=== PATIENT | female | born 1985 | race Caucasian/White ===

== ENCOUNTER → 2019-02-19 | Outpatient (CLI) | payer OTHER ==
--- NOTE | 2019-02-19 21:48 | Diagnostic Imaging Report ---
INDICATION: Tenderness in the upper outer left breast. COMPARISON: Correlation made with prior mammogram of 07/18/2016. EXAMINATION: 2D and 3D bilateral diagnostic mammography was performed with CAD. A BB marker was placed at the area of tenderness in the upper outer left breast posterior depth. The current study was also evaluated with a Computer Aided Detection (CAD) system. FINDINGS: Scattered fibroglandular densities are identified, bilaterally. Benign-appearing nodule in the central left breast is stable. No new mass or malignant-appearing microcalcifications are seen. Intraparenchymal lymph node in the axillary tail on the left is stable. IMPRESSION: No mammographic features suspicious for malignancy are identified. Even so, directed sonographic interrogation of the area of tenderness in the upper-outer left breast is recommended and will be performed today. ACR BI-RADS Category 0: Incomplete. (Needs additional imaging evaluation). Result letter will be mailed to the patient. Note: At least 10% of breast cancer is not imaged by mammography. Dictated by: Dictated on workstation # [id number]
--- NOTE | 2019-02-20 14:57 | Diagnostic Imaging Report ---
INDICATION: Tenderness in the upper-outer left breast. CORRELATION with diagnostic mammogram earlier the same day. FINDINGS: Sonographic interrogation of the area of tenderness in the outer left breast was performed. This corresponds to the 1 to 5 o'clock location of the left breast. No sonographic abnormality is seen. No solid or cystic mass is detected. IMPRESSION: BI-RADS category 1. No sonographic abnormality is detected. ACR BI-RADS Category 1: Negative. Result letter will be mailed to the patient. Note: At least 10% of breast cancer is not imaged by mammography. Dictated by: Dictated on workstation # [id number]
== END ==
LOC: RAD 14:13
PROVIDERS: ATTEND Obstetrics & Gynecology
DX: N63.10 Unspecified lump in the right breast, unspecified quadrant (principal); N63.20 Unspecified lump in the left breast, unspecified quadrant
CPT/HCPCS: 76642; 77066

== ENCOUNTER → 2020-06-14 | Outpatient (CLI) | payer OTHER ==
--- NOTE | 2020-06-14 13:58 | Diagnostic Imaging Report ---
INDICATION: Low back pain. EXAMINATION: Lumbar spine. FINDINGS: AP and lateral views of the lumbar spine show normal vertebral body height and alignment. The disc spaces are normal. The posterior elements are unremarkable. There is an IUD in the uterus. IMPRESSION: Unremarkable lumbar spine. Dictated by: Dictated on workstation # [id number]
== END ==
LOC: RAD 13:24
PROVIDERS: ATTEND Nurse Practitioner Family
DX: M54.5 Low back pain (principal); M25.559 Pain in unspecified hip
CPT/HCPCS: 72100

== ENCOUNTER → 2020-07-19 | Outpatient (CLI) | payer OTHER ==
--- NOTE | 2020-07-19 10:16 | Diagnostic Imaging Report ---
PROCEDURE: MRI lumbar spine without contrast. TECHNIQUE: Multiplanar, multisequence MRI of the lumbar spine was performed without contrast. INDICATION: Chronic low back pain. COMPARISON: 06/14/2020. FINDINGS: 5 lumbar type vertebral bodies are visualized with the last well-formed disc space designated L5-S1. No acute fracture or dislocation is seen in the lumbar spine. Alignment is anatomic. Vertebral body heights and disc spaces are well-maintained. The bone marrow signal is normal. The conus terminates at the L1 level. No masses are seen associated with the conus or nerve roots of the cauda equina. No epidural collections are identified. Degenerative changes are as follows: T12-L1: No significant spinal canal or foraminal stenosis. L1-L2: No significant spinal canal or foraminal stenosis. L2-L3: No significant spinal canal or foraminal stenosis. L3-L4: No significant spinal canal or foraminal stenosis. L4-L5: No significant spinal canal or foraminal stenosis. L5-S1: Left paracentral disc protrusion with small annular fissure, facet hypertrophy, and buckling of ligamentum flavum results in no significant spinal canal narrowing and [id number]-mg-sommpbua bilateral foraminal narrowing. Paravertebral soft tissues are unremarkable. IMPRESSION: 1. No acute fracture or dislocation in the lumbar spine. 2. Degenerative changes at the L5-S1 level resulting in [id number] bilateral foraminal narrowing. A small left paracentral disc protrusion with annular fissure is also present at L5-S1. Dictated by: Dictated on workstation # [id number]
== END ==
LOC: RAD 08:00
PROVIDERS: ATTEND Nurse Practitioner Family
DX: M47.817 Spondylosis without myelopathy or radiculopathy, lumbosacral region (principal); M51.27 Other intervertebral disc displacement, lumbosacral region; M48.07 Spinal stenosis, lumbosacral region
CPT/HCPCS: 72148

== ENCOUNTER 2023-01-18 06:08 | Emergency (ER) | payer OTHER ==
[~2023-01-18] VITALS: Ht 157.5 cm; Wt 68.0 kg
[2023-01-18] MEDS ORDERED: DEXT30CA4 (06:18)
--- NOTE | 2023-01-18 06:26 | ED Abdominal Pain ---
General Chief Complaint: Abdominal/GI Problems Stated Complaint: ABD PAIN/VOMITING Nursing Triage Note: LEFT SIDED ABDOMINAL PAIN SINCE 11A 01/17/23, VOMITTING SINCE 1800 Source of Information: Patient Exam Limitations: No Limitations History of Present Illness Date Seen by Provider: January 18, 2023 Time Seen by Provider: 06:12 Initial Comments 37-year-old female presents to the emergency department today for left-sided abdominal pain. Pain started a sharp stabbing pain in her left mid to lower abdomen yesterday at about 11 AM. She started vomiting at about 6 PM. She has had continued pain and vomiting since that time. Pain is in her left mid abdomen with doubt radiation. No obvious aggravating or alleviating factors. Emesis is nonbloody and nonbilious. She states she had a solid bowel movement yesterday. She denies any fevers but has had chills. No known sick contacts. Has not had a menstrual cycle in 2 months, has an IUD but states she has not had sex and does not believe that she is . No vaginal symptoms. No changes in urination. She has had her left fallopian tube removed. All other systems reviewed and negative except documented per HPI. Voice recognition software was used to help create this chart Allergies and Home Medications Allergies Coded Allergies: No Known Drug Allergies (Unverified , 01/18/23) Patient Home Medication List Home Medication List Reviewed: Yes Dextroamphetamine/Amphetamine (Dextroamp-Amphet ER 30 mg Cap) 30 Mg Cap.er.24h, (Reported) Entered as Reported by: ROX NEIL on 01/18/23 0618 Last Action: New Order Review of Systems Review of Systems Constitutional: see HPI Past Qmzixbw-Gpfmfn-Ccfivo Hx Patient Social History Tobacco Use?: No Substance use?: No Alcohol Use?: Yes Alcohol Frequency: Rarely Pt feels they are or have been: No Immunizations Up To Date First/Initial COVID19 Vaccinat: X2 Past Medical History Surgery/Hospitalization HX: L OOPHERECTOMY Last Menstrual Period: Nov 19, 2022 Physical Exam Vital Signs Vital Signs - First Documented 01/18/23 06:13 Temp 36.0 Pulse 82 Resp 16 B/P (MAP) 126/97 (107) Pulse Ox 98 O2 Delivery Room Air Capillary Refill : Less Than 3 Seconds Height/Weight/BMI Height: '" Weight: lbs. oz. kg; 27.00 BMI Method: General Appearance: WD/WN, no apparent distress HEENT: normal ENT inspection, pharynx normal Neck: non-tender, full range of motion, supple, normal inspection Respiratory: chest non-tender, lungs clear, normal breath sounds, no respiratory distress, no accessory muscle use Cardiovascular: regular rate, rhythm, no murmur Gastrointestinal: normal bowel sounds, soft, no organomegaly, tenderness (Tenderness palpation left mid abdomen with voluntary guarding. No rebound tenderness. No mass organomegaly. No skin changes) Extremities: normal range of motion, non-tender, normal inspection, no calf tenderness, normal capillary refill Neurologic/Psychiatric: alert, normal mood/affect, oriented x 3 Skin: normal color, warm/dry Progress/Results/Core Measures Results/Orders Lab Results Laboratory Tests Test 01/18/23 06:28 01/18/23 06:35 Range/Units Urine Color YELLOW Urine Clarity CLOUDY Urine pH 6.0 5-9 Urine Specific [place] 1.025 H 1.016-1.022 Urine Protein TRACE H NEGATIVE Urine Glucose (UA) NEGATIVE NEGATIVE Urine Ketones 2+ H NEGATIVE Urine Nitrite NEGATIVE NEGATIVE Urine Bilirubin NEGATIVE NEGATIVE Urine Urobilinogen 0.2 < = 1.0 MG/DL Urine Leukocyte Esterase NEGATIVE NEGATIVE Urine RBC (Auto) NEGATIVE NEGATIVE Urine RBC NONE /HPF Urine WBC RARE /HPF Urine Squamous Epithelial Cells 2-5 /HPF Urine Crystals NONE /LPF Urine Bacteria TRACE /HPF Urine Casts PRESENT /LPF Urine Hyaline Casts RARE /LPF Urine Mucus SMALL H /LPF Urine Culture Indicated NO White Blood Count 10.5 4.3-11.0 10^3/uL Red Blood Count 5.07 3.80-5.11 10^6/uL Hemoglobin 15.2 11.5-16.0 g/dL Hematocrit 44 35-52 % Mean Corpuscular Volume 86 80-99 fL Mean Corpuscular Hemoglobin 30 25-34 pg Mean Corpuscular Hemoglobin Concent 35 32-36 g/dL Red Cell Distribution Width 12.0 10.0-14.5 % Platelet Count 366 130-400 10^3/uL Mean Platelet Volume 9.9 9.0-12.2 fL Immature Granulocyte % (Auto) 0 % Neutrophils (%) (Auto) 79 H 42-75 % Lymphocytes (%) (Auto) 16 12-44 % Monocytes (%) (Auto) 4 0-12 % Eosinophils (%) (Auto) 1 0-10 % Basophils (%) (Auto) 1 0-10 % Neutrophils # (Auto) 8.3 H 1.8-7.8 10^3/uL Lymphocytes # (Auto) 1.7 1.0-4.0 10^3/uL Monocytes # (Auto) 0.4 0.0-1.0 10^3/uL Eosinophils # (Auto) 0.1 0.0-0.3 10^3/uL Basophils # (Auto) 0.1 0.0-0.1 10^3/uL Immature Granulocyte # (Auto) 0.0 0.0-0.1 10^3/uL Sodium Level 139 135-145 MMOL/L Potassium Level 3.5 L 3.6-5.0 MMOL/L Chloride Level 103 98-107 MMOL/L Carbon Dioxide Level 24 21-32 MMOL/L Anion Gap 12 5-14 MMOL/L Blood Urea Nitrogen 9 7-18 MG/DL Creatinine 0.80 0.60-1.30 MG/DL Estimat Glomerular Filtration Rate 96 BUN/Creatinine Ratio 11 Glucose Level 103 70-105 MG/DL Calcium Level 9.3 8.5-10.1 MG/DL Corrected Calcium 8.5-10.1 MG/DL Total Bilirubin 1.5 H 0.1-1.0 MG/DL Aspartate Amino Transf (AST/SGOT) 19 5-34 U/L Alanine Aminotransferase (ALT/SGPT) 16 0-55 U/L Alkaline Phosphatase 82 40-136 U/L Total Protein 7.6 6.4-8.2 GM/DL Albumin 4.6 H 3.2-4.5 GM/DL Lipase 16 8-78 U/L My Orders Orders - ADRIANNE RENEE DO Comprehensive Metabolic Panel (01/18/23 06:21) Lipase (01/18/23 06:21) Ua Culture If Indicated (01/18/23 06:21) Urine Bedside (01/18/23 06:21) Cbc With Automated Diff (01/18/23 06:21) Ct Abdomen/Pelvis W (01/18/23 06:21) Ondansetron Injection (Zofran Injectio (01/18/23 06:30) Ns Iv 1000 Ml (Sodium Chloride 0.9%) (01/18/23 06:30) Iohexol Injection (Omnipaque 350 Mg/Ml 1 (01/18/23 07:00) Received Contrast (Hold Metformin- Contr (01/18/23 07:00) Ns (Ivpb) (Sodium Chloride 0.9% Ivpb Bag (01/18/23 07:00) Medications Given in ED Current Medications Medications Dose Ordered Sig/Julissa Route Start Time Stop Time Status Last Admin Dose Admin Iohexol 100 ml ONCE ONCE IV 01/18/23 07:00 01/18/23 07:05 DC 01/18/23 07:01 78 ML Ondansetron HCl 8 mg ONCE ONCE IVP 01/18/23 06:30 01/18/23 06:31 DC 01/18/23 06:31 8 MG Sodium Chloride 100 ml ONCE ONCE IV 01/18/23 07:00 01/18/23 07:05 DC 01/18/23 07:01 80 ML Vital Signs/I&O 01/18/23 06:13 Temp 36.0 Pulse 82 Resp 16 B/P (MAP) 126/97 (107) Pulse Ox 98 O2 Delivery Room Air Blood Pressure Mean: 107 Departure Communication (Admissions) Differential diagnosis includes gastritis, ulcer, pancreatitis, colitis, diverticulitis, viral syndrome. Will get labs, CT. Give IV fluids and IV Zofran Labs reviewed independently, unremarkable complete metabolic panel,. CT scan images reviewed independently no obvious acute abnormality. Radiology read shows some possible slight thickening in the distal stomach but no surgical findings. Patient is tolerating p.o. after IV Zofran. She was also given IV fluids. We will discharge her home with supportive care, Zofran and close follow-up. Impression Primary Impression: Abdominal pain Qualified Codes: R10.32 - Left lower quadrant pain Additional Impression: Nausea and vomiting Qualified Codes: R11.2 - Nausea with vomiting, unspecified Disposition: HOME, SELF-CARE Condition: Stable Departure-Patient Inst. Referrals: JIMY FELDMAN MD (PCP/Family) Primary Care Physician Patient Instructions: Abdominal Pain, Adult ED, Nausea and Vomiting, Adult Add. Discharge Instructions: Increase your fluids at home and rest as needed. Use the Zofran as needed by dissolving it under your tongue to help with nausea. Return to the emergency department for any severe concerns. You may want to try an acid medicine such as Pepcid see if this may help with your pain. Your symptoms are likely the last 24 to 48 hours and gradually improve thereafter. Follow-up with primary doctor for any nonemergent needs. All discharge instructions reviewed with patient and/or family. Voiced understanding. Scripts Ondansetron (Ondansetron Odt) 8 Mg Tab.rapdis 8 MG SL Q6H PRN for NAUSEA/VOMITING for 3 Days, #12 TAB Prov: ADRIANNE RENEE DO 01/18/23 ADRIANNE RENEE DO January 18, 2023 06:26
[2023-01-18] MEDS ORDERED: ONDANSETRON 4 MG/2 ML (SDV) Z0FRAN IVP ONE (06:30)
[2023-01-18] MEDS ORDERED: NS IV 1000 ML 1,000 ML IV SCH (06:30)
[2023-01-18 06:31] LABS: BILIRUBIN,URINE NEGATIVE (NEGATIVE); CLARITY,URINE CLOUDY; COLOR,URINE YELLOW; GLUCOSE, URINE (UA) NEGATIVE (NEGATIVE); KETONES,URINE 2+ (NEGATIVE); LEUKOCYTE ESTERASE ,URINE NEGATIVE (NEGATIVE); NITRITE,URINE NEGATIVE (NEGATIVE); PROTEIN,URINE TRACE (NEGATIVE)
[2023-01-18 06:46] LABS: ALBUMIN 4.6 GM/DL (3.2-4.5); CHLORIDE 103 MMOL/L (98-107)
[2023-01-18 06:47] LABS: POTASSIUM 3.5 MMOL/L (3.6-5.0); SODIUM 139 MMOL/L (135-145)
[2023-01-18 06:48] LABS: CALCIUM 9.3 MG/DL (8.5-10.1)
[2023-01-18 06:49] LABS: GLUCOSE 103 MG/DL (70-105); TOTAL PROTEIN 7.6 GM/DL (6.4-8.2)
[2023-01-18 06:50] LABS: CARBON DIOXIDE 24 MMOL/L (21-32)
[2023-01-18 06:51] LABS: BILIRUBIN,TOTAL 1.5 MG/DL (0.1-1.0)
[2023-01-18 06:52] LABS: ALKALINE PHOSPHATASE 82 U/L (40-136)
[2023-01-18 06:53] LABS: GFR ESTIMATED 96
[2023-01-18 06:54] LABS: BASOPHILS # (AUTO) 0.1 10^3/uL (0.0-0.1); BASOPHILS % (AUTO) 1 % (0-10); BUN/CREATININE RATIO 11; EOSINOPHILS # (AUTO) 0.1 10^3/uL (0.0-0.3); EOSINOPHILS % (AUTO) 1 % (0-10); HEMATOCRIT 44 % (35-52); HEMOGLOBIN 15.2 g/dL (11.5-16.0); LYMPHOCYTES # (AUTO) 1.7 10^3/uL (1.0-4.0); LYMPHOCYTES % (AUTO) 16 % (12-44); MEAN CORPUSCULAR HEMOGLOBIN 30 pg (25-34); MEAN CORPUSCULAR HGB CONC 35 g/dL (32-36); MEAN CORPUSCULAR VOLUME 86 fL (80-99); MEAN PLATELET VOLUME 9.9 fL (9.0-12.2); MONOCYTES # (AUTO) 0.4 10^3/uL (0.0-1.0); MONOCYTES % (AUTO) 4 % (0-12); NEUTROPHILS # (AUTO) 8.3 10^3/uL (1.8-7.8); NEUTROPHILS % (AUTO) 79 % (42-75); PLATELET COUNT 366 10^3/uL (130-400); WHITE BLOOD COUNT 10.5 10^3/uL (4.3-11.0)
[2023-01-18 06:55] LABS: ALANINE AMINOTRANSFERASE 16 U/L (0-55)
[2023-01-18 06:56] LABS: LIPASE 16 U/L (8-78)
[2023-01-18 06:57] LABS: BACTERIA,URINE TRACE /HPF; HYALINE CASTS, URINE RARE /LPF; WBC,URINE RARE /HPF
[2023-01-18] MEDS ORDERED: HOLD METFORMIN - RECEIVED CONTRAST 20 ML VIAL IV SCH (07:00)
[2023-01-18] MEDS ORDERED: NS 100 ML (IVPB) BAG IV ONE (07:00)
[2023-01-18] MEDS ORDERED: IOHEXOL 350 MG/ML 100 ML (OMNIPAQUE 350) VIAL IV ONE (07:00)
--- NOTE | 2023-01-18 07:14 | Diagnostic Imaging Report ---
PROCEDURE: CT abdomen and pelvis with contrast. TECHNIQUE: Multiple contiguous axial images were obtained through the abdomen and pelvis after administration of intravenous contrast. Auto Exposure Controls were utilized during the CT exam to meet ALARA standards for radiation dose reduction. All CT scans use one or more of the following dose optimizing techniques: automated exposure control, MA and/or KvP adjustment based on patient size and exam type or iterative reconstruction. INDICATION: Left abdominal pain with nausea and emesis There is no focal hepatic, gallbladder, pancreatic, adrenal gland or splenic abnormality. Kidneys are also unremarkable apart from probable minimal cyst in the right renal cortex. There is mural thickening along the gastric antrum and pylorus which could be due to inflammation. There is no evidence of free fluid. No pneumoperitoneum is identified. There is no evidence of appendiceal region inflammation. Probable dominant follicle or cyst seen in the right ovary with intrauterine device in expected location. Unopacified urinary bladder is decompressed but otherwise unremarkable in appearance. IMPRESSION: Thickening of the distal stomach could be related to localized gastritis or peptic ulcer disease. No perforation or other complication is seen. Otherwise, no definite acute abnormality is appreciated. Dictated by: Dictated on workstation # [id number]
[2023-01-18] MEDS ORDERED: ONDA8TAB13 SL (07:22)
[2023-01-18 07:31] VITALS: BP 126/97
== END 2023-01-18 07:32 | disposition home or self-care (01) ==
LOC: EDUNIT# 06:08 → ER 06:10
DX: R10.32 Left lower quadrant pain (principal); R11.2 Nausea with vomiting, unspecified
CPT/HCPCS: 36415; 74177; 80053; 81000; 83690; 84703; 85025

== ENCOUNTER 2023-01-21 09:40 | Observation (INO) | payer OTHER ==
[~2023-01-21] VITALS: Ht 157 cm; Wt 68.5 kg
[~2023-01-21 09:40] MED LIST: DEXT30CA4; ONDA8TAB13 SL
[2023-01-21 10:08] LABS: CLARITY,URINE CLEAR; COLOR,URINE YELLOW; GLUCOSE, URINE (UA) NEGATIVE (NEGATIVE); KETONES,URINE TRACE (NEGATIVE); LEUKOCYTE ESTERASE ,URINE TRACE (NEGATIVE); NITRITE,URINE NEGATIVE (NEGATIVE); PROTEIN,URINE 2+ (NEGATIVE)
--- NOTE | 2023-01-21 10:14 | ED Abdominal Pain ---
General Chief Complaint: Abdominal/GI Problems Stated Complaint: NAUSEA AND VOMITTING Nursing Triage Note: PT PRESENTS TO ED VIA POV FROM HOME WITH COMPLAINTS OF INTERMITTENT LUQ PAIN AND N/V SINCE SUNDAY. PT REPORTS SHE WAS SEEN IN ED SUNDAY AND GIVEN FLUIDS AND ZOFRAN AND TOLD IT WAS GASTRITIS. PT REPORTS NO IMPROVEMENT. Source of Information: Patient, Old Records Exam Limitations: No Limitations History of Present Illness Date Seen by Provider: January 21, 2023 Time Seen by Provider: 09:51 Initial Comments This 37-year-old woman presents to the emergency room for a repeat visit with primary concerns of upper left-sided abdominal pain and intractable nausea and vomiting. She denies any hematemesis or hematochezia. She has had chills without fevers. She has not produced a bowel movement since Sunday and t hought perhaps she was constipated. CT scan performed in the ER on Sunday demonstrated thickening of the distal stomach suggestive of gastritis or ulcerative disease. No perforation was present. She has been taking Pepcid and Zofran persistently without any improvement. She has not been able to consume solid foods since her ER visit on Sunday. She is tearful and expresses concern that she is failing outpatient care. She has history of prior left- sided abdominal pain that was worked up with laparoscopically and colonoscopy at another facility. She does not recall any significant findings on those studies. During laparoscopic she did have a left salpingectomy. She denies any alcohol or drug use. She is not . Dr. Feldman is her primary care provider. I reviewed her prior notes from the ER visit on Sunday as well as the CT scan report. I personally viewed the CT images. I did note moderate stool burden in the proximal and transverse colon. The distal colon was essentially empty. Allergies and Home Medications Allergies Coded Allergies: No Known Drug Allergies (Unverified , 01/18/23) Patient Home Medication List Home Medication List Reviewed: Yes Dextroamphetamine/Amphetamine (Dextroamp-Amphet ER 30 mg Cap) 30 Mg Cap.er.24h, (Reported) Entered as Reported by: ROX NEIL on 01/18/23 0618 Dextroamphetamine/Amphetamine (Adderall Xr 30 mg Capsule) 30 Mg Cap.er.24h, 30 MG PO DAILY, (Reported) Entered as Reported by: COLT MILLRE on 01/21/23 1256 Last Action: New Order Ondansetron (Ondansetron Odt) 8 Mg Tab.rapdis, 8 MG SL Q6H PRN for NAUSEA/VOMITING Prescribed by: ADRIANNE RENEE MD on 01/18/23 0722 Review of Systems Review of Systems Constitutional: weakness EENTM: No Symptoms Reported Respiratory: No Symptoms Reported Cardiovascular: No Symptoms Reported Gastrointestinal: See HPI Genitourinary: Other (Dark urine) Musculoskeletal: no symptoms reported Skin: no symptoms reported Psychiatric/Neurological: No Symptoms Reported Endocrine: No Symptoms Reported Hematologic/Lymphatic: No Symptoms Reported Past Psliivz-Okwynn-Xxrvtf Hx Patient Social History Tobacco Use?: No Substance use?: No Alcohol Use?: No Pt feels they are or have been: No Immunizations Up To Date First/Initial COVID19 Vaccinat: X2 Second COVID19 Vaccination Jovani: X2 Third COVID19 Vaccination Date: X2 Past Medical History Surgery/Hospitalization HX: L OOPHERECTOMY Surgeries: Yes Abdominal (Laparoscopic with left oophorectomy), 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 (Left) Respiratory: No Cardiac: No 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 oz. kg; 27.00 BMI Method: General Appearance: WD/WN, mild distress HEENT: normal ENT inspection, other (Oropharynx pasty) Neck: normal inspection Respiratory: lungs clear, normal breath sounds, no respiratory distress Cardiovascular: regular rate, rhythm, no edema, no murmur Gastrointestinal: normal bowel sounds, soft; No distended; tenderness (Primarily in the epigastrium and left upper quadrant. Palpation of the right abdomen causes pain in the left upper quadrant) Extremities: normal inspection, no pedal edema Neurologic/Psychiatric: no motor/sensory deficits, alert, normal mood/affect, oriented x 3 Skin: normal color, warm/dry Progress/Results/Core Measures Results/Orders Lab Results Laboratory Tests Test 01/21/23 09:58 01/21/23 10:19 Range/Units Urine Color YELLOW Urine Clarity CLEAR Urine pH 6.0 5-9 Urine Specific [place] 1.025 H 1.016-1.022 Urine Protein 2+ H NEGATIVE Urine Glucose (UA) NEGATIVE NEGATIVE Urine Ketones TRACE H NEGATIVE Urine Nitrite NEGATIVE NEGATIVE Urine Bilirubin 1+ H NEGATIVE Urine Urobilinogen 2.0 < = 1.0 MG/DL Urine Leukocyte Esterase TRACE H NEGATIVE Urine RBC (Auto) NEGATIVE NEGATIVE Urine RBC NONE /HPF Urine WBC RARE /HPF Urine Squamous Epithelial Cells 2-5 /HPF Urine Crystals PRESENT H /LPF Urine Calcium Oxalate Crystals MODERATE H /LPF Urine Amorphous Sediment FEW CECILE URATES H /LPF Urine Bacteria FEW H /HPF Urine Casts PRESENT /LPF Urine Hyaline Casts 2-5 H /LPF Urine Mucus MODERATE H /LPF Urine Culture Indicated YES White Blood Count 10.4 4.3-11.0 10^3/uL Red Blood Count 5.03 3.80-5.11 10^6/uL Hemoglobin 15.0 11.5-16.0 g/dL Hematocrit 43 35-52 % Mean Corpuscular Volume 86 80-99 fL Mean Corpuscular Hemoglobin 30 25-34 pg Mean Corpuscular Hemoglobin Concent 35 32-36 g/dL Red Cell Distribution Width 11.9 10.0-14.5 % Platelet Count 341 130-400 10^3/uL Mean Platelet Volume 9.9 9.0-12.2 fL Immature Granulocyte % (Auto) 0 % Neutrophils (%) (Auto) 70 42-75 % Lymphocytes (%) (Auto) 23 12-44 % Monocytes (%) (Auto) 6 0-12 % Eosinophils (%) (Auto) 0 0-10 % Basophils (%) (Auto) 1 0-10 % Neutrophils # (Auto) 7.3 1.8-7.8 10^3/uL Lymphocytes # (Auto) 2.4 1.0-4.0 10^3/uL Monocytes # (Auto) 0.6 0.0-1.0 10^3/uL Eosinophils # (Auto) 0.0 0.0-0.3 10^3/uL Basophils # (Auto) 0.1 0.0-0.1 10^3/uL Immature Granulocyte # (Auto) 0.0 0.0-0.1 10^3/uL Sodium Level 139 135-145 MMOL/L Potassium Level 3.4 L 3.6-5.0 MMOL/L Chloride Level 101 98-107 MMOL/L Carbon Dioxide Level 23 21-32 MMOL/L Anion Gap 15 H 5-14 MMOL/L Blood Urea Nitrogen 9 7-18 MG/DL Creatinine 0.97 0.60-1.30 MG/DL Estimat Glomerular Filtration Rate 76 BUN/Creatinine Ratio 9 Glucose Level 102 70-105 MG/DL Calcium Level 9.4 8.5-10.1 MG/DL Corrected Calcium 9.1 8.5-10.1 MG/DL Magnesium Level 2.0 1.6-2.4 MG/DL Total Bilirubin 1.5 H 0.1-1.0 MG/DL Aspartate Amino Transf (AST/SGOT) 13 5-34 U/L Alanine Aminotransferase (ALT/SGPT) 13 0-55 U/L Alkaline Phosphatase 73 40-136 U/L C-Reactive Protein High Sensitivity 0.04 0.00-0.50 MG/DL Total Protein 7.3 6.4-8.2 GM/DL Albumin 4.4 3.2-4.5 GM/DL Lipase 30 8-78 U/L Serum Test, Qualitative NEGATIVE NEGATIVE My Orders Orders - DAPHNE MUELLER MD Cbc With Automated Diff (01/21/23 10:01) Comprehensive Metabolic Panel (01/21/23 10:01) Hs C Reactive Protein (01/21/23 10:01) Hcg,Qualitative Serum (01/21/23 10:01) Lipase (01/21/23 10:01) Ua Culture If Indicated (01/21/23 10:01) Ed Iv/Invasive Line Start (01/21/23 10:01) Lactated Ringers (Lr 1000 Ml Iv Solution (01/21/23 10:15) Promethazine Injection (Phenergan Injec (01/21/23 10:15) Pantoprazole Injection (Protonix Injecti (01/21/23 10:15) Magnesium (01/21/23 10:13) Urine Culture (01/21/23 09:58) Medications Given in ED Current Medications Medications Dose Ordered Sig/Julissa Route Start Time Stop Time Status Last Admin Dose Admin Lactated Ringer's 1,000 ml @ 0 mls/hr Q0M ONCE IV 01/21/23 10:15 01/21/23 10:16 DC 01/21/23 10:23 0 MLS/HR Pantoprazole 40 mg ONCE ONCE IV 01/21/23 10:15 01/21/23 10:16 DC 01/21/23 10:23 40 MG Promethazine HCl 25 mg ONCE ONCE IVP 01/21/23 10:15 01/21/23 10:16 DC 01/21/23 10:23 25 MG Vital Signs/I&O 01/21/23 09:53 Temp 36.1 Pulse 68 Resp 16 B/P (MAP) 120/88 (99) Pulse Ox 97 Blood Pressure Mean: 99 Progress Progress Note #1: Time: 12:14 Progress Note Patient was interviewed and examined. Labs were repeated and reviewe d/interpreted by me. Labs included CBC, CMP, CRP, lipase, urinalysis, and serum test. All of the studies were essentially unremarkable. There was minimal elevation in bilirubin of 1.5. Urinalysis did demonstrate ketones,, trace leukocyte Estrace, and trace bacteria. Specific gravity was also a little elevated. Her urinalysis would suggest hypovolemia. Based on the trace leukocyte esterase and trace bacteria, Dr. Eagle, general surgeon, recommends treating for possible urinary tract infection as well. We will treat with 1 dose of Rocephin in the ER and then evaluate cultures. Dr. Eagle was consulted regarding the abdominal pain and agrees with admission for observation, noncarbonated clear liquids, and PPI therapy as well as antiemetics and pain control. Gallbladder ultrasound will be obtained in the morning. Case was reviewed with Dr. ODOM, admitting family practice physician on-call for Dr. FELDMAN. She is agreeable to admission. While in the ER patient was hydrated with 1 L of LR. Nausea was treated with Phenergan IV. Protonix 40 mg IV was administered as well. Patient reported improvement in her nausea and abdominal pain with these therapies. Through shared decision making, we elected to pursue admission as she is essentially failing outpatient therapies. Progress Note #2: Progress Note Dr. Eagle presented to the emergency room to evaluate the patient. He recommended treating with a dose of Rocephin for possible urinary tract infection. Rocephin was initiated in the ER. Further treatment may be based on culture results or at the discretion of attending physician. Ultrasound of gallbladder was ordered for the morning. Departure Communication (Admissions) Time/Spoke to Admitting Phy: 11:55 Dr. Odom Time/Spoke to Consulting Phy: 12:00 Dr. Eagle Impression Primary Impression: Intractable nausea and vomiting Additional Impression: Upper abdominal pain Disposition: ADMITTED INPATIENT Condition: Stable Admissions Decision to Admit Reason: Admit from ER (General) Decision to Admit/Date: January 21, 2023 Time/Decision to Admit Time: 11:55 Departure-Patient Inst. Referrals: JIMY FELDMAN MD (PCP/Family) Primary Care Physician Copy Copies To 1: JIMY FELDMAN MD, JOSHUA T MD January 21, 2023 10:14
[2023-01-21] MEDS ORDERED: PANTOPRAZOLE 40 MG (PROTONIX) VIAL IV ONE (10:15)
[2023-01-21] MEDS ORDERED: PROMETHAZINE INJ 25 MG/ML (PHENERGAN) AMP IVP ONE (10:15)
[2023-01-21] MEDS ORDERED: LACTATED RINGERS 1,000 ML IV ONE (10:15)
[2023-01-21 10:25] LABS: BACTERIA,URINE FEW /HPF; BILIRUBIN,URINE 1+ (NEGATIVE); CALCIUM OXALATE CRYSTALS,UR MODERATE /LPF; WBC,URINE RARE /HPF
[2023-01-21 10:26] LABS: AMORPHOUS SEDIMENT,UR FEW AMOR URATES /LPF
[2023-01-21 10:32] LABS: BASOPHILS # (AUTO) 0.1 10^3/uL (0.0-0.1); BASOPHILS % (AUTO) 1 % (0-10); EOSINOPHILS % (AUTO) 0 % (0-10); HEMATOCRIT 43 % (35-52); LYMPHOCYTES # (AUTO) 2.4 10^3/uL (1.0-4.0); LYMPHOCYTES % (AUTO) 23 % (12-44); MEAN CORPUSCULAR HEMOGLOBIN 30 pg (25-34); MEAN CORPUSCULAR HGB CONC 35 g/dL (32-36); MEAN CORPUSCULAR VOLUME 86 fL (80-99); MEAN PLATELET VOLUME 9.9 fL (9.0-12.2); MONOCYTES # (AUTO) 0.6 10^3/uL (0.0-1.0); MONOCYTES % (AUTO) 6 % (0-12); NEUTROPHILS # (AUTO) 7.3 10^3/uL (1.8-7.8); NEUTROPHILS % (AUTO) 70 % (42-75); PLATELET COUNT 341 10^3/uL (130-400); WHITE BLOOD COUNT 10.4 10^3/uL (4.3-11.0)
[2023-01-21 10:41] LABS: ALBUMIN 4.4 GM/DL (3.2-4.5); POTASSIUM 3.4 MMOL/L (3.6-5.0)
[2023-01-21 10:42] LABS: CALCIUM 9.4 MG/DL (8.5-10.1)
[2023-01-21 10:43] LABS: TOTAL PROTEIN 7.3 GM/DL (6.4-8.2)
[2023-01-21 10:45] LABS: BILIRUBIN,TOTAL 1.5 MG/DL (0.1-1.0)
[2023-01-21 10:47] LABS: CREATININE SERUM 0.97 MG/DL (0.60-1.30)
[2023-01-21] MEDS ORDERED: cefTRIAXone IV/IM 1,000 MG in NS (IVPB) 50 ML IV STA (12:20)
[2023-01-21 12:45] VITALS: BP 136/88
[2023-01-21] MEDS ORDERED: NF-ADDXR30 PO (12:56)
--- NOTE | 2023-01-21 13:11 | Consultation - Surgery ---
History of Present Illness History of Present Illness Patient Consulted On(pantera/time) 01/21/23 13:04 Time Seen by Provider: 12:07 History of Present Illness Surgery asked to consult regarding abdominal pain, intractable N/V and elevated Bilirubin. HPI per ED: This 37-year-old woman presents to the emergency room for a repeat visit with primary concerns of upper left-sided abdominal pain and intractable nausea and vomiting. She denies any hematemesis or hematochezia. She has had chills without fevers. She has not produced a bowel movement since Sunday and thought perhaps she was constipated. CT scan performed in the ER on Sunday demonstrated thickening of the distal stomach suggestive of gastritis or ulcerative disease. No perforation was present. She has been taking Pepcid and Zofran persistently without any improvement. She has not been able to consume solid foods since her ER visit on Sunday. She is tearful and expresses concern that she is failing outpatient care. She has history of prior left-sided abdominal pain that was worked up with laparoscopically and colonoscopy at another facility. She does not recall any significant findings on those studies. During laparoscopic she did have a left salpingectomy. She denies any alcohol or drug use. She is not . Dr. Jiang is her primary care provider. I reviewed her prior notes from the ER visit on Sunday as well as the CT scan report. I personally viewed the CT images. I did note moderate stool burden in the proximal and transverse colon. The distal colon was essentially empty. When I spoke to pt she stated the pain started Sunday around 11-12 in the afternoon. It started in the LUQ and will radiate down both sides and across lower abdomen. She rated the pain on Sunday as 8 out of 10 at its worst. It is slightly better but not gone and the only thing that helps is "a salt bath and putting my belly in the water". She denies ever having pain like this before, even minimal LUQ pain. She denies eating anything differently than anyone else in her family. She states that when she got home Sunday at 6pm, she pulled into the driveway and "flung the door open and immediately threw up". She states she then vomited every 30 minutes all night and went to the ER on . She has never had pain before with any type of food and doesn't remember any RUQ pain. She states she hasn't eaten anything since Sunday; "I try to get some fluids down before I eat anything, but I throw up the liquids". She has had a UTI before, but this doesn't feel anything like that. She denies dysuria, but stated it was hard to "pee" and no hematuria. She does not have a history of GERD. Denied hematemesis. She states she had a "ghost pain in the LLQ, years ago" and had Diagnostic laparoscopy where they took out her left tube; but that didn't help the pain. She then had a Colonoscopy that showed nothing, but pain did not come back after the colonoscopy. Allergies and Home Medications Allergies Coded Allergies: No Known Drug Allergies (Unverified , 01/18/23) Patient Home Medication List Home Medication List Reviewed: Yes Dextroamphetamine/Amphetamine (Dextroamp-Amphet ER 30 mg Cap) 30 Mg Cap.er.24h, (Reported) Entered as Reported by: ROX NEIL on 01/18/23 0618 Dextroamphetamine/Amphetamine (Adderall Xr 30 mg Capsule) 30 Mg Cap.er.24h, 30 MG PO DAILY, (Reported) Entered as Reported by: COLT MILLER on 01/21/23 1256 Last Action: New Order Ondansetron (Ondansetron Odt) 8 Mg Tab.rapdis, 8 MG SL Q6H PRN for NAUSEA/VOMITING Prescribed by: ADRIANNE RENEE MD on 01/18/23 0722 Past Lvndxpu-Gfrufo-Vppdec Hx Patient Social History Smoking Status: Never a Smoker Alcohol Use?: No Have you traveled recently?: No Surgeries History of Surgeries: Yes Surgeries: Abdominal (Laparoscopic with left oophorectomy), 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 (Left) Respiratory History of Respiratory Disorde: No Cardiovascular History of Cardiac Disorders: No Neurological History of Neurological Disord: No Reproductive System : No PSYCHIATRIC NP History: IUD Genitourinary History of Genitourinary Disor: No Gastrointestinal History of Gastrointestinal Di: No Musculoskeletal History of Musculoskeletal Dis: No Endocrine History of Endocrine Disorders: No HEENT History of HEENT Disorders: No Cancer History of Cancer: No Psychosocial History of Psychiatric Problem: Yes Behavioral Health Disorders: ADD/ADHD Family Medical History Significant Family History: Cancer (Grandmother had colon and breast), Hypertension (Mother) Review of Systems-General Constitutional: No chills, No diaphoresis; malaise, weakness EENTM: No blurred vision, No double vision, No mouth swelling, No epistaxis Respiratory: No cough, No dyspnea on exertion, No short of breath Cardiovascular: No chest pain, No edema, No palpitations Gastrointestinal: abdominal pain, constipation; No hematemesis, No jaundice; nausea, vomiting Genitourinary: No dysuria, No frequency, No hematuria; hesitancy Musculoskeletal: No back pain, No joint pain, No joint swelling Skin: No change in color, No change in hair/nails Psychiatric/Neurological: Denies Anxiety, Denies Depressed, Denies Seizure, Denies Tremors Physical Exam-General Problems Physical Exam Vital Signs Vital Signs - First Documented 01/21/23 09:53 Temp 36.1 Pulse 68 Resp 16 B/P (MAP) 120/88 (99) Pulse Ox 97 Capillary Refill : Less Than 3 Seconds General Appearance: WD/WN, mild distress, other (pt looks pale and tired) Eyes: Bilateral Eye PERRL, Bilateral Eye EOMI HEENT: pharynx normal; No scleral icterus (R), No scleral icterus (L), No pale conjunctivae (R), No pale conjunctivae (L) Neck: non-tender, supple Respiratory: lungs clear, normal breath sounds, no respiratory distress, no accessory muscle use Cardiovascular: regular rate, rhythm, no murmur Gastrointestinal: soft, no organomegaly, tenderness (diffusely but mostly in LUQ), hernia (small umbilical hernia) Rectal: deferred Back: no CVA tenderness, no vertebral tenderness Extremities: no pedal edema, no calf tenderness, normal capillary refill 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, no motor/sensory deficits, alert, normal mood/affect, oriented x 3 Skin: normal color, warm/dry Lymphatic: no adenopathy (neck, axilla or groin) Data Review Labs Laboratory Tests 01/21/23 09:58: Urine Color YELLOW, Urine Clarity CLEAR, Urine pH 6.0, Urine Specific [place] 1.025H, Urine Protein 2+H, Urine Glucose (UA) NEGATIVE, Urine Ketones TRACEH, Urine Nitrite NEGATIVE, Urine Bilirubin 1+H, Urine Urobilinogen 2.0, Urine Leukocyte Esterase TRACEH, Urine RBC (Auto) NEGATIVE, Urine RBC NONE, Urine WBC RARE, Urine Squamous Epithelial Cells 2-5, Urine Crystals PRESENTH, Urine Calcium Oxalate Crystals MODERATEH, Urine Amorphous Sediment FEW CECILE URATESH, Urine Bacteria FEWH, Urine Casts PRESENT, Urine Hyaline Casts 2-5H, Urine Mucus MODERATEH, Urine Culture Indicated YES 01/21/23 10:19: White Blood Count 10.4, Red Blood Count 5.03, Hemoglobin 15.0, Hematocrit 43, Mean Corpuscular Volume 86, Mean Corpuscular Hemoglobin 30, Mean Corpuscular Hemoglobin Concent 35, Red Cell Distribution Width 11.9, Platelet Count 341, Mean Platelet Volume 9.9, Immature Granulocyte % (Auto) 0, Neutrophils (%) (Auto) 70, Lymphocytes (%) (Auto) 23, Monocytes (%) (Auto) 6, Eosinophils (%) (Auto) 0, Basophils (%) (Auto) 1, Neutrophils # (Auto) 7.3, Lymphocytes # (Auto) 2.4, Monocytes # (Auto) 0.6, Eosinophils # (Auto) 0.0, Basophils # (Auto) 0.1, Immature Granulocyte # (Auto) 0.0, Sodium Level 139, Potassium Level 3.4L, Chloride Level 101, Carbon Dioxide Level 23, Anion Gap 15H, Blood Urea Nitrogen 9, Creatinine 0.97, Estimat Glomerular Filtration Rate 76, BUN/Creatinine Ratio 9, Glucose Level 102, Calcium Level 9.4, Corrected Calcium 9.1, Magnesium Level 2.0, Total Bilirubin 1.5H, Aspartate Amino Transf (AST/SGOT) 13, Alanine Aminotransferase (ALT/SGPT) 13, Alkaline Phosphatase 73, C-Reactive Protein High Sensitivity 0.04, Total Protein 7.3, Albumin 4.4, Lipase 30, Serum Test, Qualitative NEGATIVE Radiology Date of Exam:01/18/23 CT ABDOMEN/PELVIS W PROCEDURE: CT abdomen and pelvis with contrast. TECHNIQUE: Multiple contiguous axial images were obtained through the abdomen and pelvis after administration of intravenous contrast. Auto Exposure Controls were utilized during the CT exam to meet ALARA standards for radiation dose reduction. All CT scans use one or more of the following dose optimizing techniques: automated exposure control, MA and/or KvP adjustment based on patient size and exam type or iterative reconstruction. INDICATION: Left abdominal pain with nausea and emesis There is no focal hepatic, gallbladder, pancreatic, adrenal gland or splenic abnormality. Kidneys are also unremarkable apart from probable minimal cyst in the right renal cortex. There is mural thickening along the gastric antrum and pylorus which could be due to inflammation. There is no evidence of free fluid. No pneumoperitoneum is identified. There is no evidence of appendiceal region inflammation. Probable dominant follicle or cyst seen in the right ovary with intrauterine device in expected location. Unopacified urinary bladder is decompressed but otherwise unremarkable in appearance. IMPRESSION: Thickening of the distal stomach could be related to localized gastritis or peptic ulcer disease. No perforation or other complication is seen. Otherwise, no definite acute abnormality is appreciated. Dictated by: Dictated on workstation # [id number] Dict: 01/18/23 0711 Trans: 01/18/23845 [facility] [id number] Interpreted by: ADELA GRAMAJO MD Electronically signed by: ADELA GRAMAJO MD 01/18/2346 Assessment/Plan Assessment/Plan Assessment/Plan Left Upper Quadrant Abdominal Pain Intractable Nausea and vomiting Elevated Bilirubin Thickened distal stomach/Gastritis seen on CT Possible UTI Umbilical hernia Pt is being admitted for IV fluids, pain control and anti-emetics. Will get an US in the morning to better assess the Gallbladder and bile ducts. She will also get a dose of Rocephin because of the change in the UA from 01/18 to today and will wait on the culture results. I reviewed the CT myself and noted the very thickened distal stomach, mildly distended gallbladder but could not see any stones and the CBD did not look dilated. As well, I discussed the case with ED physician. She may benefit from an EGD and may even need her gallbladder out d epending on US results. The umbilical hernia is not causing any problems and the mild constipation seen on CT is also probably not contributing anything. Bladder is not distended enough to determine any Cystitis. I discussed all of this with pt and answered all her questions. NEL HERRON DO January 21, 2023 13:11
[2023-01-21] MEDS ORDERED: morphine INJ 4 MG/ML 1 ML (VIAL/SYRINGE) IV PRN (13:15)
[2023-01-21] MEDS: LACTATED RINGERS 1,000 ML IV SCH ×2 (13:21→21:02)
[2023-01-21] MEDS: ONDANSETRON 4 MG/2 ML (SDV) Z0FRAN IV PRN ×2 (13:27→21:02)
[2023-01-21 16:20] VITALS: BP 123/77
[2023-01-21] MEDS: PROMETHAZINE INJ 25 MG/ML (PHENERGAN) AMP IV PRN (16:28)
[2023-01-21 19:52] VITALS: BP 108/71
[2023-01-21] MEDS: PANTOPRAZOLE 40 MG (PROTONIX) VIAL IV SCH (21:02)
[2023-01-22] VITALS (9 sets, daily range): BP systolic 2–122; BP diastolic 68–90
[2023-01-22] MEDS: LACTATED RINGERS 1,000 ML IV SCH ×3 (03:48→19:25)
[2023-01-22] MEDS: ONDANSETRON 4 MG/2 ML (SDV) Z0FRAN IV PRN ×4 (03:49→16:36)
[2023-01-22 04:00] LABS: BASOPHILS # (AUTO) 0.1 10^3/uL (0.0-0.1); BASOPHILS % (AUTO) 1 % (0-10); EOSINOPHILS # (AUTO) 0.2 10^3/uL (0.0-0.3); EOSINOPHILS % (AUTO) 2 % (0-10); HEMATOCRIT 40 % (35-52); HEMOGLOBIN 13.8 g/dL (11.5-16.0); LYMPHOCYTES # (AUTO) 3.2 10^3/uL (1.0-4.0); LYMPHOCYTES % (AUTO) 35 % (12-44); MEAN CORPUSCULAR HEMOGLOBIN 30 pg (25-34); MEAN CORPUSCULAR HGB CONC 35 g/dL (32-36); MEAN CORPUSCULAR VOLUME 85 fL (80-99); MEAN PLATELET VOLUME 10.2 fL (9.0-12.2); MONOCYTES # (AUTO) 0.5 10^3/uL (0.0-1.0); MONOCYTES % (AUTO) 6 % (0-12); NEUTROPHILS # (AUTO) 5.1 10^3/uL (1.8-7.8); NEUTROPHILS % (AUTO) 56 % (42-75); PLATELET COUNT 298 10^3/uL (130-400); WHITE BLOOD COUNT 9.2 10^3/uL (4.3-11.0)
[2023-01-22 04:18] LABS: EOSINOPHILS % (MANUAL) 1 %; LYMPHOCYTES % (MANUAL) 37 %; MICROCYTOSIS SLIGHT; MONOCYTES % (MANUAL) 8 %; NEUTROPHILS % (MANUAL) 54 %
[2023-01-22 04:20] LABS: ALBUMIN 3.8 GM/DL (3.2-4.5); BILIRUBIN,TOTAL 1.7 MG/DL (0.1-1.0); CALCIUM 8.4 MG/DL (8.5-10.1); CREATININE SERUM 0.74 MG/DL (0.60-1.30); POTASSIUM 3.3 MMOL/L (3.6-5.0); TOTAL PROTEIN 6.2 GM/DL (6.4-8.2)
--- NOTE | 2023-01-22 07:20 | Progress Note - Surgery ---
DG EATON 01/22/23 0720: Subjective Date Seen by a Provider: January 22, 2023 Time Seen by a Provider: 07:00 Subjective/Events-last exam patient reports the left upper abdominal pain has been off and on overnight. patient currently rates her pain as a 5/10. The patient does not radiate.Patient reports nausea and vomiting. Last BM was Sunday. Patient states that it feels better when she lays down. Review of Systems General: No Chills, No Night Sweats HEENT: No Head Aches, No Visual Changes Pulmonary: No Dyspnea, No Cough Cardiovascular: No: Chest Pain, Palpitations Gastrointestinal: Nausea, Vomiting, Abdominal Pain (LUQ-tender) Genitourinary: No Dysuria, No Frequency Musculoskeletal: No: neck pain, shoulder pain Neurological: No: Change in speech, Confusion Objective Exam Vital Signs Date Time Temp Pulse Resp B/P (MAP) Pulse Ox O2 Delivery O2 Flow Rate FiO2 01/22/23 03:43 36.1 69 17 112/71 (85) 97 Room Air 01/22/23 00:06 36.6 70 16 117/75 (89) 95 Room Air 01/21/23 21:00 98 Room Air 01/21/23 19:52 37.0 73 14 108/71 (83) 97 Room Air 01/21/23 16:20 36.7 54 123/77 (92) 98 Room Air 01/21/23 13:10 100 Room Air 01/21/23 12:45 136/88 (104) 98 Room Air 01/21/23 12:43 51 18 109/61 98 01/21/23 09:53 36.1 68 16 120/88 (99) 97 I & O 01/22/23 07:00 Intake Total 2280 ml Output Total 2150 ml Balance 130 ml Capillary Refill : Less Than 3 Seconds General Appearance: No Apparent Distress HEENT: PERRL/EOMI, Moist Mucous Membranes Neck: Full Range of Motion, Supple Respiratory: Lungs Clear, Normal Breath Sounds, No Accessory Muscle Use, No Respiratory Distress Cardiovascular: Regular Rate, Rhythm, No Murmur Gastrointestinal: normal bowel sounds, soft; No distended; tenderness (epigastric and RUQ tenderness to light and deep palpation. Palpation of the right abdomen causes pain in the left upper quadrant) Extremity: Non Tender, No Pedal Edema Neurologic/Psychiatric: Alert, Oriented x3 Results Lab Laboratory Tests 01/21/23 09:58: Urine Color YELLOW, Urine Clarity CLEAR, Urine pH 6.0, Urine Specific [place] 1.025H, Urine Protein 2+H, Urine Glucose (UA) NEGATIVE, Urine Ketones TRACEH, Urine Nitrite NEGATIVE, Urine Bilirubin 1+H, Urine Urobilinogen 2.0, Urine Leukocyte Esterase TRACEH, Urine RBC (Auto) NEGATIVE, Urine RBC NONE, Urine WBC RARE, Urine Squamous Epithelial Cells 2-5, Urine Crystals PRESENTH, Urine Calcium Oxalate Crystals MODERATEH, Urine Amorphous Sediment FEW CECILE URATESH, Urine Bacteria FEWH, Urine Casts PRESENT, Urine Hyaline Casts 2-5H, Urine Mucus MODERATEH, Urine Culture Indicated YES 01/21/23 10:19: White Blood Count 10.4, Red Blood Count 5.03, Hemoglobin 15.0, Hematocrit 43, Mean Corpuscular Volume 86, Mean Corpuscular Hemoglobin 30, Mean Corpuscular Hemoglobin Concent 35, Red Cell Distribution Width 11.9, Platelet Count 341, Mean Platelet Volume 9.9, Immature Granulocyte % (Auto) 0, Neutrophils (%) (Auto) 70, Lymphocytes (%) (Auto) 23, Monocytes (%) (Auto) 6, Eosinophils (%) (Auto) 0, Basophils (%) (Auto) 1, Neutrophils # (Auto) 7.3, Lymphocytes # (Auto) 2.4, Monocytes # (Auto) 0.6, Eosinophils # (Auto) 0.0, Basophils # (Auto) 0.1, I mmature Granulocyte # (Auto) 0.0, Sodium Level 139, Potassium Level 3.4L, Chloride Level 101, Carbon Dioxide Level 23, Anion Gap 15H, Blood Urea Nitrogen 9, Creatinine 0.97, Estimat Glomerular Filtration Rate 76, BUN/Creatinine Ratio 9, Glucose Level 102, Calcium Level 9.4, Corrected Calcium 9.1, Magnesium Level 2.0, Total Bilirubin 1.5H, Aspartate Amino Transf (AST/SGOT) 13, Alanine Aminotransferase (ALT/SGPT) 13, Alkaline Phosphatase 73, C-Reactive Protein High Sensitivity 0.04, Total Protein 7.3, Albumin 4.4, Lipase 30, Serum Test, Qualitative NEGATIVE 01/22/23 03:31: White Blood Count 9.2, Red Blood Count 4.66, Hemoglobin 13.8, Hematocrit 40, Mean Corpuscular Volume 85, Mean Corpuscular Hemoglobin 30, Mean Corpuscular Hemoglobin Concent 35, Red Cell Distribution Width 11.9, Platelet Count 298, Mean Platelet Volume 10.2, Immature Granulocyte % (Auto) 0, Neutrophils (%) (Auto) 56, Lymphocytes (%) (Auto) 35, Monocytes (%) (Auto) 6, Eosinophils (%) (Auto) 2, Basophils (%) (Auto) 1, Neutrophils # (Auto) 5.1, Lymphocytes # (Auto) 3.2, Monocytes # (Auto) 0.5, Eosinophils # (Auto) 0.2, Basophils # (Auto) 0.1, Immature Granulocyte # (Auto) 0.0, Sodium Level 138, Potassium Level 3.3L, Chloride Level 105, Carbon Dioxide Level 24, Anion Gap 9, Blood Urea Nitrogen 7, Creatinine 0.74, Estimat Glomerular Filtration Rate 105, BUN/Creatinine Ratio 9, Glucose Level 85, Calcium Level 8.4L, Corrected Calcium 8.6, Total Bilirubin 1.7H, Aspartate Amino Transf (AST/SGOT) 11, Alanine Aminotransferase (ALT/SGPT) 8, Alkaline Phosphatase 70, Total Protein 6.2L, Albumin 3.8, Neutrophils % (Manual) 54, Lymphocytes % (Manual) 37, Monocytes % (Manual) 8, Eosinophils % (Manual) 1, Microcytosis SLIGHT Assessment/Plan Assessment/Plan Assessment/Plan Left Upper Quadrant Abdominal Pain Intractable Nausea and vomiting Elevated Bilirubin Thickened distal stomach/Gastritis seen on CT Possible UTI Umbilical hernia patient informed that she will have US this morning to assess the gallbladder and bile ducts. . NICK EAGLE DO 01/22/23 1139: Subjective Time Seen by a Provider: 11:01 Subjective/Events-last exam Pt seen and examined, states she feels about the same "no changes". Did have another episode of emesis last night. Review of Systems General: No Chills, No Night Sweats Pulmonary: No Dyspnea, No Cough Cardiovascular: No: Chest Pain, Palpitations Gastrointestinal: Nausea, Vomiting, Abdominal Pain (LUQ-tender) Objective Exam General Appearance: Anxious, Chronically ill, Mild Distress HEENT: PERRL/EOMI, Moist Mucous Membranes Respiratory: Lungs Clear, Normal Breath Sounds, No Accessory Muscle Use, No Respiratory Distress Cardiovascular: Regular Rate, Rhythm, No Murmur Gastrointestinal: soft, no organomegaly; No distended; tenderness (epigastric and RUQ tenderness to light and deep palpation. Palpation of the right abdomen causes pain in the left upper quadrant) Extremity: No Calf Tenderness, No Pedal Edema Neurologic/Psychiatric: Alert, Oriented x3 Assessment/Plan Assessment/Plan Assessment/Plan Left Upper Quadrant Abdominal Pain Intractable Nausea and vomiting Elevated Bilirubin Thickened distal stomach/Gastritis seen on CT Possible UTI Umbilical hernia US did not show anything in the Gallbladder and no signs of inflammation or problems. Will do the EGD to assess the stomach, because of pain and the CT findings. She may need a HIDA scan, but can do this as an outpt. Will get consent for EGD and possible biopsy. All questions answered to her satisfaction. Supervisory-Addendum Brief Verification & Attestation Participated in pt care: history, MDM, physical Personally performed: exam, history, MDM, supervision of care Care discussed with: Medical Student Procedures: n/a Verification and Attestation of Medical Student E/M Service A medical student performed and documented this service. I then reviewed and verified all information documented by the medical student and made modifications to such information, when appropriate. I personally performed a physical exam, medical decision making and then discussed any differences between the notes and made revisions as necessary to create one note. Nick Eagle , 01/22/23 , 11:39 DG EATON January 22, 2023 07:20 NICK EAGLE DO January 22, 2023 11:39
--- NOTE | 2023-01-22 08:03 | History & Physical ---
History of Present Illness History of Present Illness Reason for visit/HPI Pt is a 37 y/o female who is a patient in my clinic. She presented to the ER and was admitted on 01/21/23 after having failed outpatient management from an ER visit on 01/18/23. She reportedly had severe nausea, emesis that started on 01/17/23 as soon as she arrived home from work. The illness persisted with vomiting all night and into the next day which prompted her initial ER visit on 01/18/23. She was worked up on 01/18 without an acute findings other than gastritis. She was sent home with nausea medication, but she had been unable to keep down food or fluids and she returned to the ER on 01/21/23 after participating with the recommended treatments without any successful resolution of symptoms. Date of Admission January 21, 2023 at 12:56 Date Seen by a Provider: January 22, 2023 Time Seen by a Provider: 08:00 Attending Physician Jimy Feldman MD Admitting Physician Jimy Feldman Consult Dr. Eagle Allergies and Home Medications Allergies Coded Allergies: No Known Drug Allergies (Unverified , 01/18/23) Patient Home Medication List Home Medication List Reviewed: Yes Acetaminophen (Tylenol Extra Strength) 500 Mg Tablet, 1,000 MG PO Q8H PRN for PAIN-MILD (1-4), (Reported) Entered as Reported by: IRAM SALINAS on 01/22/23 1504 Last Action: Reviewed Dextroamphetamine/Amphetamine (Adderall Xr 30 mg Capsule) 30 Mg Cap.er.24h, 30 MG PO DAILY, (Reported) Entered as Reported by: COLT MILLER on 01/21/23 1256 Last Action: Reviewed Famotidine (Famotidine) 20 Mg Tablet, 20 MG PO DAILY PRN for HEARTBURN, (Reported) Entered as Reported by: IRAM SALINAS on 01/22/23 1504 Last Action: Reviewed Ibuprofen (Ibuprofen) 200 Mg Tablet, 400 MG PO Q8H PRN for PAIN-MILD (1-4), (Reported) Entered as Reported by: IRAM SALINAS on 01/22/23 1504 Last Action: Reviewed Ondansetron (Ondansetron Odt) 8 Mg Tab.rapdis, 8 MG SL Q6H PRN for NAUSEA/VOMITING Prescribed by: ADRIANNE RENEE MD on 01/18/23721 Last Action: Reviewed Discontinued Medications Dextroamphetamine/Amphetamine (Dextroamp-Amphet ER 30 mg Cap) 30 Mg Cap.er.24h, (Reported) Discontinued Reason: Duplicate Order Entered as Reported by: ROX NEIL on 01/18/23617 Last Action: Discontinued Past Wycaley-Mzhrkt-Dzlgvg Hx Patient Social History Living Status: lives with her children in their home Employed/Student: employed Tobacco Use?: No Smoking Status: Never a Smoker Use of E-Cig and/or Vaping dev: No Substance use?: No Alcohol Use?: No Pt feels they are or have been: No Immunizations Up To Date First/Initial COVID19 Vaccinat: X2 Second COVID19 Vaccination Jovani: X2 Tetanus Booster (TDap): Unknown Current Status status: No Advance Directives: No Primary Language: South Korean Preferred Spoken Language: [place] Korean Sensory deficits: Vision impairment Implanted or Applied Medical D: None Past Medical History Surgeries: Abdominal (Laparoscopic with left oophorectomy), 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 (Left) 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 Family Medical History Reviewed Nursing Family Hx Cancer (Grandmother had colon and breast), Hypertension (Mother) Review of Systems Constitutional: No chills, No diaphoresis, No fever; malaise, weakness EENTM: No hoarseness, No throat pain Respiratory: No cough, No dyspnea on exertion, No short of breath Cardiovascular: No edema, No palpitations Gastrointestinal: abdominal pain; No constipation, No diarrhea, No dysphagia, No hematemesis; loss of appetite, nausea, vomiting Genitourinary: dysuria, frequency Musculoskeletal: No back pain, No muscle weakness Skin: no symptoms reported Psychiatric/Neurological: Anxiety (over illness) All Other Systems Reviewed Negative Unless Noted: Yes Physical Exam Vital Signs Vital Signs - First Documented 01/21/23 01/21/23 01/22/23 09:53 12:45 13:40 Temp 36.1 Pulse 68 Resp 16 B/P (MAP) 120/88 (99) Pulse Ox 97 O2 Delivery Room Air O2 Flow Rate 6.00 Capillary Refill : Less Than 3 Seconds Height, Weight, BMI Height: '" Weight: lbs. oz. kg; 27.91 BMI Method: General Appearance: No Apparent Distress, WD/WN HEENT: PERRL/EOMI, Pharynx Normal Neck: Full Range of Motion, Non Tender, Supple Respiratory: Chest Non Tender, Lungs Clear, Normal Breath Sounds, No Accessory Muscle Use, No Respiratory Distress Cardiovascular: Regular Rate, Rhythm Gastrointestinal: Normal Bowel Sounds, No Organomegaly, Soft, Tenderness (epigastric) Rectal: Deferred Extremity: Normal Capillary Refill, Normal Inspection, Non Tender, No Calf Tenderness, No Pedal Edema Neurologic/Psychiatric: Alert, Oriented x3, No Motor/Sensory Deficits, Other (anxious, tearful) Skin: Normal Color, Warm/Dry Lymphatic: No Adenopathy Assessment/Plan Assessment and Plan Intractable nausea with emesis Epigastric Abdominal pain Gastritis Intractable nausea with emesis - IV zofran, IV fluids, monitor symptoms. Epigastric Abdominal pain with Gastritis - consult to Dr. Eagle for EGD - GB US pending Depending on outcome of imaging and EGD - will make plans for further evaluation/treatment Admission Diagnosis Intractable nausea with emesis Epigastric Abdominal pain Gastritis Admission Status: Observation JIMY FELDMAN MD January 22, 2023 08:03
[2023-01-22] MEDS: PANTOPRAZOLE 40 MG (PROTONIX) VIAL IV SCH ×2 (08:10→20:15)
[2023-01-22] MEDS: POTASSIUM CL 10MEQ/50ML IVPB 50 ML IV SCH ×2 (08:47→10:21)
--- NOTE | 2023-01-22 10:17 | Diagnostic Imaging Report ---
PROCEDURE: US Gallbladder. TECHNIQUE: Multiple real-time grayscale images were obtained over the right upper quadrant in various projections. INDICATION: Nausea and emesis with abdominal pain. The liver measures 13.7 cm in length. Gallbladder has a normal appearance without evidence of filling defect. No wall thickening or biliary ductal dilatation is identified. Portions of pancreas are obscured by overlying bowel gas. No pancreatic, right renal, abdominal aortic or inferior vena caval abnormality is documented. No ascites was noted. IMPRESSION: No acute abnormality seen in right upper quadrant. Dictated by: Dictated on workstation # [id number]
[2023-01-22] MEDS ORDERED: MIDAZOLAM 2 MG/2 ML (VERSED) VIAL ONE (12:48)
[2023-01-22] MEDS ORDERED: proPOfol 200 MG/20 ML (DIPRIVAN) VIAL IV ONE (12:48)
[2023-01-22] MEDS ORDERED: LACTATED RINGERS 1,000 ML IV STA (13:38)
--- NOTE | 2023-01-22 13:42 | Endoscopy Discharge Instruct ---
Endo Procedure/Findings Findings 1.: Gastric Ulcer 2.: Hiatal Hernia Discharge Instructions - Activity: You might feel a little sleepy until tomorrow. This is due to the medicine you received to relax you. Until tomorrow, you should: NOT drive a car, operate machinery or power tools. NOT drink any alcoholic beverages. NOT make any important decisions or sign importortant papers. Do not return to work until tomorrow, unless otherwise instructed. Resume previous activities tomorrow. Diet: Start by taking liquids. If you tolerate liquids, advance to solid food. 1.: EGD in 6-8 weeks Notify Physician - If you experience excessive bleeding, unusual abdominal pain, fever, or chest pain, contact your doctor immediately. Follow-Up: Other Follow up in one week, in my office NEL HERRON DO January 22, 2023 13:42
--- NOTE | 2023-01-22 13:42 | Progress Note-Post Operative ---
Post-Operative Progess Note Surgeon (s)/Equipment Maintenance Technician (s) Surgeon NEL HERRON DO Equipment Maintenance Technician: none Pre-Operative Diagnosis LUQ abdominal pain, intractable N/V Post-Operative Diagnosis Large Gastric ulcer Hiatal hernia Procedure & Operative Findings Date of Procedure 01/22/23 Procedure Performed/Findings EGD with biopsy PROCEDURE NOTE: After informed consent was obtained, the patient was brought to the endoscopy suite, placed in bed in left lateral decubitus position. She was administered IV sedation by the WAGE HAND who then monitored vitals the entire time, heart rate, blood pressure and pulse ox and the scope was inserted down the mouth through the esophagus into the stomach. On the way down, noted some mild esophagitis, took a picture, pushed into the stomach and immediately saw a very large ulcer. I took a picture of this and then pushed past the antrum into the duodenum. Duodenum looked good and I pulled back and did a biopsy of the edges of this ulcer. I then retroflexed the scope, saw a 1-2cm Grade III AFS hiatal hernia and took a picture of this. Next, I pulled the scope into the GE junction, took another picture of the hiatal hernia and then did a biopsy of the GE junction. Pushed the scope back into the stomach, suctioned all the air out of the stomach. At this point pulled the scope up the esophagus and out the mouth. The patient tolerated the procedure, and she recovered in endoscopy suite. Anesthesia Type IV sedation by WAGE HAND Estimated Blood Loss Estimated blood loss (mL): scant Specimens/Packing Specimens Removed ulcer bx GE jxn bx NEL HERRON DO January 22, 2023 13:42
[2023-01-22] MEDS ORDERED: HURRICAINE EXT TUBE (BENZOCAINE) XX PRN (13:45)
--- NOTE | 2023-01-22 13:54 | Anesthesia-General Post-Op ---
MAC Patient Condition Mental Status/LOC: Same as Preop Cardiovascular: Satisfactory Nausea/Vomiting: Absent Respiratory: Satisfactory Pain: Controlled Complications: Absent Post Op Complications Complications None Follow Up Care/Instructions Patient Instructions None needed. Anesthesiology Discharge Order Discharge Order Patient is doing well, no complaints, stable vital signs, no apparent adverse anesthesia problems. No complications reported per nursing. ZO CHEN CRNA January 22, 2023 13:54
[2023-01-22] MEDS ORDERED: ACET-2267 PO (15:04)
[2023-01-22] MEDS ORDERED: FAMO20TA5 PO (15:04)
[2023-01-22] MEDS ORDERED: IBUP-2473 PO (15:04)
[2023-01-22] MEDS: SUCRALFATE 1 GM (CARAFATE) TAB PO SCH ×2 (15:42→20:16)
[2023-01-22] MEDS: PROMETHAZINE INJ 25 MG/ML (PHENERGAN) AMP IV PRN (20:16)
[2023-01-23 03:51] VITALS: BP 122/79
[2023-01-23] MEDS: LACTATED RINGERS 1,000 ML IV SCH (03:51)
[2023-01-23 04:29] LABS: HEMATOCRIT 40 % (35-52); HEMOGLOBIN 13.9 g/dL (11.5-16.0); MEAN CORPUSCULAR HEMOGLOBIN 30 pg (25-34); MEAN CORPUSCULAR HGB CONC 35 g/dL (32-36); MEAN CORPUSCULAR VOLUME 85 fL (80-99); MEAN PLATELET VOLUME 10.3 fL (9.0-12.2); PLATELET COUNT 290 10^3/uL (130-400); WHITE BLOOD COUNT 8.3 10^3/uL (4.3-11.0)
[2023-01-23 04:52] LABS: ALBUMIN 3.8 GM/DL (3.2-4.5); BILIRUBIN,TOTAL 1.7 MG/DL (0.1-1.0); CALCIUM 8.4 MG/DL (8.5-10.1); CREATININE SERUM 0.82 MG/DL (0.60-1.30); POTASSIUM 3.6 MMOL/L (3.6-5.0); TOTAL PROTEIN 6.1 GM/DL (6.4-8.2)
[2023-01-23] MEDS: SUCRALFATE 1 GM (CARAFATE) TAB PO SCH ×2 (05:48→09:54)
[2023-01-23] MEDS: ONDANSETRON 4 MG/2 ML (SDV) Z0FRAN IV PRN (05:50)
--- NOTE | 2023-01-23 06:53 | Progress Note - Surgery ---
Subjective Date Seen by a Provider: January 23, 2023 Time Seen by a Provider: 06:35 Subjective/Events-last exam Patient states that she tolerated the EGD well. Patient states that she is still very nauseated today. States that she did have an episode of vomiting yesterday, but reports it was after she drank a [employer] drink. Patient states that she is tolerating water, gatorade and grape juice. States that she was unable to eat the chicken broth due to nausea. Patient reports LUQ crampy abdominal pain. Patient states that her abdominal pain is much better than yesterday. No BM, but has passed gas. Review of Systems General: No Chills, No Night Sweats HEENT: No Head Aches, No Visual Changes Pulmonary: No Dyspnea, No Cough Cardiovascular: No: Chest Pain, Palpitations Gastrointestinal: Nausea, Vomiting (yesterday), Abdominal Pain (crampy in LUQ) Genitourinary: No Dysuria, No Frequency Musculoskeletal: No: shoulder pain, back pain Neurological: No: Change in speech, Confusion Objective Exam Vital Signs Date Time Temp Pulse Resp B/P (MAP) Pulse Ox O2 Delivery O2 Flow Rate FiO2 01/23/23 03:51 36.4 66 16 122/79 (93) 93 Room Air 01/22/23 23:26 36.6 62 14 115/75 (88) 95 Room Air 01/22/23 21:00 98 Room Air 01/22/23 20:00 37.0 62 16 111/73 (86) 99 Room Air 01/22/23 16:00 36.9 70 18 112/68 (83) 99 Room Air 01/22/23 13:45 82 16 100 Room Air 01/22/23 13:40 85 16 100 OxyMask 6.00 01/22/23 13:30 2/ 01/22/23 09:00 96 Room Air 01/22/23 08:00 62 16 121/90 (100) 97 Room Air I & O 01/23/23 07:00 Intake Total 3150 ml Output Total 250 ml Balance 2900 ml Capillary Refill : Less Than 3 Seconds General Appearance: No Apparent Distress, WD/WN HEENT: PERRL/EOMI, Moist Mucous Membranes Neck: Non Tender Respiratory: Chest Non Tender, Lungs Clear, Normal Breath Sounds, No Accessory Muscle Use, No Respiratory Distress Cardiovascular: Regular Rate, Rhythm, No Murmur Peripheral Pulses: 3+ Radial Pulses (R), 3+ Radial Pulses (L) Gastrointestinal: soft, no organomegaly; No distended; tenderness (LUQ and hypogastric region tenderness to palpation) Extremity: Normal Capillary Refill, Non Tender, No Calf Tenderness, No Pedal Edema Neurologic/Psychiatric: Alert, Oriented x3, Normal Mood/Affect, Other Skin: Normal Color, Warm/Dry Results Lab Laboratory Tests 01/23/23 04:04: White Blood Count 8.3, Red Blood Count 4.68, Hemoglobin 13.9, Hematocrit 40, Mean Corpuscular Volume 85, Mean Corpuscular Hemoglobin 30, Mean Corpuscular Hemoglobin Concent 35, Red Cell Distribution Width 11.8, Platelet Count 290, Mean Platelet Volume 10.3, Sodium Level 140, Potassium Level 3.6, Chloride Level 106, Carbon Dioxide Level 25, Anion Gap 9, Blood Urea Nitrogen 6L, Creatinine 0.82, Estimat Glomerular Filtration Rate 93, BUN/Creatinine Ratio 7, Glucose Level 87, Calcium Level 8.4L, Corrected Calcium 8.6, Total Bilirubin 1.7H, Aspartate Amino Transf (AST/SGOT) 11, Alanine Aminotransferase (ALT/SGPT) 10, Alkaline Phosphatase 68, Total Protein 6.1L, Albumin 3.8 Microbiology 01/21/23 Urine Culture - Final, Complete See Comments Assessment/Plan Assessment/Plan Assessment/Plan Left Upper Quadrant Abdominal Pain Intractable Nausea and vomiting Elevated Bilirubin Thickened distal stomach/Gastritis seen on CT Possible UTI Umbilical hernia EGD showed mild esophagitis, large ulcer in stomach and 1-2cm Grade III hiatal hernia. Patient still reporting nausea and has not been able to tolerate chicken broth. Total bilirubin is still mildly elevated at 1.7. Will continue to monitor. DG EATON January 23, 2023 06:53
--- NOTE | 2023-01-23 09:35 | Discharge Summary ---
Diagnosis/Chief Complaint Date of Admission January 21, 2023 at 12:56 Date of Discharge Reason Hospital Visit Pt is a 37 y/o female who is a patient in my clinic. She presented to the ER and was admitted on 01/21/23 after having failed outpatient management from an ER visit on 01/18/23. She reportedly had severe nausea, emesis that started on 01/17/23 as soon as she arrived home from work. The illness persisted with vomiting all night and into the next day which prompted her initial ER visit on 01/18/23. She was worked up on 01/18 without an acute findings other than gastritis. She was sent home with nausea medication, but she had been unable to keep down food or fluids and she returned to the ER on 01/21/23 after participating with the recommended treatments without any successful resolution of symptoms. Discharge Summary Discharge Physical Examination Allergies: Coded Allergies: No Known Drug Allergies (Unverified , 01/18/23) Vitals & I&Os Vital Signs Date Time Temp Pulse Resp B/P (MAP) Pulse Ox O2 Delivery O2 Flow Rate FiO2 01/23/23 03:51 36.4 66 16 122/79 (93) 93 Room Air 01/22/23 13:40 6.00 Hospital Course Pending Labs Laboratory Tests 01/23/23 04:04: White Blood Count 8.3, Red Blood Count 4.68, Hemoglobin 13.9, Hematocrit 40, Mean Corpuscular Volume 85, Mean Corpuscular Hemoglobin 30, Mean Corpuscular Hemoglobin Concent 35, Red Cell Distribution Width 11.8, Platelet Count 290, Mean Platelet Volume 10.3, Sodium Level 140, Potassium Level 3.6, Chloride Level 106, Carbon Dioxide Level 25, Anion Gap 9, Blood Urea Nitrogen 6, Creatinine 0.82, Estimat Glomerular Filtration Rate 93, BUN/Creatinine Ratio 7, Glucose Level 87, Calcium Level 8.4, Corrected Calcium 8.6, Total Bilirubin 1.7, Aspartate Amino Transf (AST/SGOT) 11, Alanine Aminotransferase (ALT/SGPT) 10, Alkaline Phosphatase 68, Total Protein 6.1, Albumin 3.8 Discharge Instructions to patient/family Please see electronic discharge instructions given to patient. Discharge Medications Reviewed and agree with Discharge Medication list on patient's Discharge Instruction sheet JIMY FELDMAN MD January 23, 2023 09:35
[2023-01-23] MEDS ORDERED: PANT40TA52 PO (09:38)
[2023-01-23] MEDS ORDERED: SUCR1TAB PO (09:38)
[2023-01-23] MEDS: PANTOPRAZOLE 40 MG (PROTONIX) VIAL IV SCH (09:54)
== END 2023-01-23 10:25 | disposition home or self-care (01) ==
LOC: EDUNIT# 09:40 → ER 09:42 → CSD 12:56
PROVIDERS: ADMIT Family Medicine; ATTEND Family Medicine
DX: K25.9 Gastric ulcer, unspecified as acute or chronic, without hemorrhage or perforation (principal); K20.90 Esophagitis, unspecified without bleeding; K29.70 Gastritis, unspecified, without bleeding; K31.89 Other diseases of stomach and duodenum; K44.9 Diaphragmatic hernia without obstruction or gangrene; E80.7 Disorder of bilirubin metabolism, unspecified; K42.9 Umbilical hernia without obstruction or gangrene
CPT/HCPCS: 43239; 76705; 80053 ×3; 81000; 83690; 83735 ×2; 84703 ×2; 85007; 85025; 85027 ×2; 86141; 87088 ×2; 88305; 96361 ×2; 96366; 96375; 96376 ×3; 99284; G0378; 36415

== ENCOUNTER 2023-02-14 09:57 | Outpatient (CLI) | payer OTHER ==
[~2023-02-14] VITALS: Ht 157.5 cm; Wt 66.2 kg
[~2023-02-14 09:57] MED LIST changes: +ACET-2267 PO; +FAMO20TA5 PO; +IBUP-2473 PO; +NF-ADDXR30 PO; +PANT40TA52 PO; +SUCR1TAB PO
== END 2023-02-14 11:09 | disposition home or self-care (01) ==
LOC: PREOP 09:57
PROVIDERS: ATTEND Surgery
DX: Z01.818 Encounter for other preprocedural examination (principal)

== ENCOUNTER 2023-02-26 10:16 | Day surgery (SDC) | payer OTHER ==
[~2023-02-26] VITALS: Ht 157 cm; Wt 66.2 kg
[2023-02-26] MEDS ORDERED: LACTATED RINGERS 1,000 ML IV STA (10:19)
[2023-02-26] MEDS ORDERED: HURRICAINE EXT TUBE (BENZOCAINE) XX PRN (10:30)
[2023-02-26 10:44] VITALS: BP 102/71
--- NOTE | 2023-02-26 11:23 | Progress Note-Pre Operative ---
Pre-Operative Progress Note Date of Available H&P: February 13, 2023 Date H&P Reviewed: Feb 26, 2023 Time H&P Reviewed: 11:17 History & Physical: H&P Reviewed, Patient Examed, No changes noted Pre-Operative Diagnosis: Gastric Ulcer NEL HERRON DO Feb 26, 2023 11:23
[2023-02-26] MEDS ORDERED: PROPOFOL INJECTION 50 ML IV ONE (12:21)
--- NOTE | 2023-02-26 12:39 | Anesthesia-General Post-Op ---
MAC Patient Condition Mental Status/LOC: Same as Preop Cardiovascular: Satisfactory Nausea/Vomiting: Absent Respiratory: Satisfactory Pain: Controlled Complications: Absent Post Op Complications Complications None Follow Up Care/Instructions Patient Instructions None needed. Anesthesiology Discharge Order Discharge Order Patient is doing well, no complaints, stable vital signs, no apparent adverse anesthesia problems. No complications reported per nursing. SALINA EAST CRNA Feb 26, 2023 12:39
[2023-02-26 12:42] VITALS: BP 86/97
--- NOTE | 2023-02-26 12:42 | Progress Note-Post Operative ---
Post-Operative Progess Note Surgeon (s)/Harness Placer (s) Surgeon NEL HERRON DO Harness Placer: none Pre-Operative Diagnosis Gastric Ulcer Post-Operative Diagnosis same hiatal hernia Procedure & Operative Findings Date of Procedure 02/26/23 Procedure Performed/Findings EGD with bx PROCEDURE NOTE: After informed consent was obtained, the patient was brought to the endoscopy suite, placed in bed in left lateral decubitus position. She was administered IV sedation by the CLINICAL TRIAL LEADER who then monitored vitals the entire time, heart rate, blood pressure and pulse ox and the scope was inserted down the mouth through the esophagus into the stomach. On the way down, noted some mild esophagitis, took a picture, pushed into the stomach and could see area of prvevious large ulcer; appeared to have healed. I took a picture and then pushed past the antrum into the duodenum. Duodenum looked good. Pulled back and did a biopsy of the area of previous ulcer. Then retroflexed the scope, saw v kenroy small hiatal hernia, took a picture of this and then pulled the scope into the GE junction, took another picture of the GE junction. Pushed the scope back into the stomach, suctioned all the air out of the stomach. At this point pulled the scope up the esophagus and out the mouth. The patient tolerated the procedure, and she recovered in endoscopy suite. Anesthesia Type IV sedation by CLINICAL TRIAL LEADER Estimated Blood Loss Estimated blood loss (mL): scant Specimens/Packing Specimens Removed antral bx NEL HERRON DO Feb 26, 2023 12:42
--- NOTE | 2023-02-26 12:42 | Endoscopy Discharge Instruct ---
Endo Procedure/Findings Findings 1.: Gastric Ulcer 2.: Hiatal Hernia Discharge Instructions - Activity: You might feel a little sleepy until tomorrow. This is due to the medicine you received to relax you. Until tomorrow, you should: NOT drive a car, operate machinery or power tools. NOT drink any alcoholic beverages. NOT make any important decisions or sign importortant papers. Do not return to work until tomorrow, unless otherwise instructed. Resume previous activities tomorrow. Diet: Start by taking liquids. If you tolerate liquids, advance to solid food. 1.: EGD in 6-8 weeks Notify Physician - If you experience excessive bleeding, unusual abdominal pain, fever, or chest pain, contact your doctor immediately. Follow-Up: Other Follow up in my office in one week NLE HERRON DO Feb 26, 2023 12:42
[2023-02-26 12:47] VITALS: BP 92/53
[2023-02-26 12:50] VITALS: BP 92/53
[2023-02-26 13:20] VITALS: BP 92/53
== END 2023-02-26 13:20 | disposition home or self-care (01) ==
LOC: ENDO 10:16
PROVIDERS: ATTEND Surgery
DX: K29.50 Unspecified chronic gastritis without bleeding (principal); K44.9 Diaphragmatic hernia without obstruction or gangrene; K20.90 Esophagitis, unspecified without bleeding; Z87.11 Personal history of peptic ulcer disease; Z79.899 Other long term (current) drug therapy
CPT/HCPCS: 84703

== ENCOUNTER → 2023-05-04 | Outpatient (CLI) | payer OTHER ==
--- NOTE | 2023-05-04 16:57 | Diagnostic Imaging Report ---
INDICATION: Routine screening. COMPARISON is made with prior mammograms from 02/19/2019 and 07/18/2016. 2-D and 3-D bilateral screening mammography was performed with CAD. Scattered fibroglandular densities are identified bilaterally. Benign nodules left breast are stable. No new mass or malignant-appearing microcalcifications are seen. Axillae are unremarkable. IMPRESSION: BI-RADS Category 2 No mammographic features suspicious for malignancy are identified. ACR BI-RADS Category 2: Benign findings. Result letter will be mailed to the patient. Note: At least 10% of breast cancer is not imaged by mammography. Dictated by: Dictated on workstation # [id number]
== END ==
LOC: RAD 10:41
PROVIDERS: ATTEND Nurse Practitioner Women's Health
DX: Z12.31 Encounter for screening mammogram for malignant neoplasm of breast (principal)
CPT/HCPCS: 77063; 77067